=== PATIENT | female | born 1990 | race Caucasian/White ===

== ENCOUNTER 2018-08-11 12:12 | Observation (INO) ==
[2018-08-11] MEDS ORDERED: OXYCODONE Oral CONC 10 MG/0.5 ML ORAL.SYG SL ONE (15:51)
[2018-08-11] MEDS ORDERED: cefOXitin 2,000 MG in Water for inj. (sterile) 20 ML 20 ML IVP SCH (16:00)
[2018-08-11] MEDS ORDERED: 0.9 % Sodium Chloride 1,000 ML IVC SCH ×2 (16:00→22:00)
[2018-08-11] MEDS ORDERED: Ondansetron 4 MG/2 ML VIAL IVP PRN ×2 (16:30→22:27)
--- NOTE | 2018-08-11 16:49 | Acute Care Surgery H&P ---
Date of Encounter: 08/11/18 Time of Encounter: 16:00 Assessment and Plan (1) Acute appendicitis Current Visit: Yes Status: Acute The assessment and plan as outlined above was discussed with the patient and/or family members who expressed understanding and agreement. All questions were answered. Plan urgent laparoscopic appendectomy. Preoperative treatment with second- generation cephalosporin Qualifiers: Acute appendicitis type: with localized peritonitis Appendicitis gangrene presence: unspecified whether gangrene present Appendicitis perforation presence: unspecified whether perforation present Appendicitis abscess presence: unspecified whether abscess present Qualified Code(s): K35.30 - Acute appendicitis with localized peritonitis, without perforation or gangrene History of Present Illness Chief complaint: Right lower quadrant abdominal pain HPI: Ms. Trejo is a 28 year old female Who has a 1 day history of right-sided abdominal pain localized to the right lower quadrant. She has pain with motion. She has no shakes chills or fever. Pain is unrelenting. She is anorexic. She sought evaluation at the [facility] emergency room. CAT scan demonstrated appendicolith and thickened appendix wall. There were also some lymph nodes suggestive of mesenteric adenitis. Physical examination is highly suggestive of acute appendicitis. Plan urgent laparoscopic appendectomy Past Med Surg Social Fam HX - Past Medical History Medical history: no medical history Additional medical history: biliary colic Psychiatric history: anxiety - Past Surgical History Surgical History: non-contributory - Social History Smoking Status: Never smoker Smokeless Tobacco Status: No Alcohol use: none Drug use: none Medications and Allergies Citalopram [CeleXA] 20 mg PO DAILY 01/07/16 [History] Norgestimate-Ethinyl Estradiol [Sprintec 28 Day Tablet] 1 each PO DAILY 01/07/16 [History] Allergy/AdvReac Type Severity Reaction Status Date / Time No Known Allergies Allergy Verified 04/14/17 09:34 Review of Systems All systems PM: The remainder of the systems were reviewed and are negative General Surgery Exam Initial Vital Signs Temp Pulse Resp BP Pulse Ox 98.7 F 87 16 122/80 98 08/11/18 14:37 08/11/18 14:37 08/11/18 14:37 08/11/18 14:37 08/11/18 14:37 - General physical appearance well developed, well nourished, moderate distress, severe pain - Neck no masses, no bruits, trachea midline, no lymphadectomy, no venous distension - Respiratory normal expansion, normal respiratory effort, clear to percussion, clear to auscultation - Cardiovascular Cardiovascular exam: Present: RRR, no murmurs/rubs/gallops - Abdomen Abdomen general surgery: Present: bowel sounds present, tender Abdominal Tenderness: Present: RLQ (The patient has both guarding and rebound) - Neurologic Present: CN 2-12 grossly intact, normal coordination, normal sensation - Psychiatric Psychiatric general surgery: Present: appropriate, oriented to person, oriented to place, oriented to time, speech is normal, memory intact Results - Labs All other labs normal. - Imaging CT scan - abdomen: image reviewed (I personally reviewed the CAT scan and the abdomen. Patient does have appendicoliths and thickened appendix wall. Findings are consistent with appendicitis)
[2018-08-11] MEDS ORDERED: Ondansetron 4 MG/2 ML VIAL IVP SCH (20:00)
--- NOTE | 2018-08-11 20:23 | Anesthesia Evaluation PreOp ---
Date of Encounter: 08/11/18 Time of Encounter: 20:20 - Past History Planned Operation: Lap Appendectomy Cardiac History: Denies any Significant Hx Pulmonary History: Denies Any Significant HX FIELD COORDINATOR History: Denies Any Significant HX Other Medical History: Other (Anxiety Obese) Anesthesia History: No Prior Anesthetic Complications : No Test: Negative Alcohol Use: none Drug use: none Medications and Allergies Citalopram [CeleXA] 20 mg PO DAILY 01/07/16 [History] Norgestimate-Ethinyl Estradiol [Sprintec 28 Day Tablet] 1 each PO DAILY 01/07/16 [History] Allergy/AdvReac Type Severity Reaction Status Date / Time No Known Allergies Allergy Verified 04/14/17 09:34 - Meds/Allergy Pre-op Review Medications Reviewed: Yes Allergies Reviewed: Yes Beta Blockers on Current Med List: No Anesthesia Results - Labs Laboratory Tests 08/11/18 08/11/18 09:20 09:20 Hgb 14.3 Hct 41.2 Plt Count 219 Sodium 136 Potassium 4.0 BUN 10 Creatinine 0.59 L Anesthesia Exam O2 Sat Height 1.7 m Weight 91.1 kg O2 Sat by Pulse Oximetry 97 O2 Sat by Pulse Oximetry 98 Vital Signs Temp Pulse Resp BP Pulse Ox 98.7 F 87 16 122/80 98 08/11/18 14:37 08/11/18 14:37 08/11/18 14:37 08/11/18 14:37 08/11/18 14:37 Height: 5'7 Weight: 200 lbs NPO (# of Hours): MN Pain Scale: 0 - HEENT Pupil (Motor): Pupils equal, EOMI Mallampati: II Teeth: Normal Oral Opening: Greater than 3 - FIELD COORDINATOR LOC: Oriented FIELD COORDINATOR Motor: Normal RUE, Normal LUE, Normal RLE, Normal LLE, Normal Face FIELD COORDINATOR Sensory: Normal: RUE, LUE, RLE, LLE, Face - Cardiac Rhythm: Regular Murmur: None JVD: No Carotid Bruit: No - Pulmonary Breath Sounds: bilateral Clear Respiratory Effort: Symmetrical Anesthesia Assess/Plan ASA Score: 2 Level of consciousness: Cooperative, Oriented Anesthetic Plan: General Autologous Blood: No Monitoring Plan: Standard Monitors Recovery Plan: PACU (Discussed GA, agrees to proceed)
[2018-08-11] MEDS ORDERED: *HR* Morphine 2 MG/ML SYRINGE IVP PRN (20:25)
[2018-08-11] MEDS ORDERED: Ondansetron 4 MG/2 ML VIAL IVP ONE (20:25)
[2018-08-11] MEDS ORDERED: *HR* FentaNYL (PF) 100 MCG/2 ML VIAL ONE (20:30)
[2018-08-11] MEDS ORDERED: *HR* Propofol 200 MG/20 ML VIAL IVP ONE (20:30)
[2018-08-11] MEDS ORDERED: Dexamethasone 4 MG/ML VIAL ONE (20:31)
[2018-08-11] MEDS ORDERED: Lidocaine -MPF 2% 2 ML VIAL ONE ×2 (20:31→21:01)
[2018-08-11] MEDS ORDERED: *HR* Rocuronium Bromide 50 MG/5 ML VIAL ONE (20:31)
[2018-08-11] MEDS ORDERED: Famotidine 20 MG/2 ML VIAL ONE (20:33)
[2018-08-11] MEDS ORDERED: Acetaminophen IV 1,000 MG/100 ML INFUS..BTL ONE (20:33)
[2018-08-11] MEDS ORDERED: CefOXitin 1,000 MG VIAL ONE (20:38)
[2018-08-11] MEDS ORDERED: Ketorolac 30 MG/ML VIAL ONE (21:21)
[2018-08-11] MEDS ORDERED: SUGAMMADEX SODIUM 500 MG/5 ML VIAL IV ONE (21:30)
[2018-08-11] MEDS ORDERED: *HR* OxyCODONE/APAP 5/325 TABLET PO PRN (21:48)
[2018-08-11] MEDS ORDERED: OXYCODONE Oral CONC 10 MG/0.5 ML ORAL.SYG SL PRN ×2 (21:48→22:27)
--- NOTE | 2018-08-11 21:56 | Operative Note ---
Date of procedure: 08/11/18 Pre-op diagnosis: Acute appendicitis Post-op diagnosis: same Procedure: Laparoscopic appendectomy Anesthesia: AMBREEN Surgeon: Geoff Stroud Was there an technical assistant present: No Estimated blood loss (cc): 10 Specimen: Appendix Condition: stable Disposition: PACU Procedure in Detail: After informed consent the patients taking major operative suite placed supine position and given adequate general endotracheal anesthesia. The abdomen is prepped and draped in sterile fashion utilizing ChloraPrep and standard draping techniques. Timeout was taken and the patient was identified. I made a vertical midline incision below the umbilicus and dissected down to level of fascia. 2 traction stitches were placed using 0 Vicryl. The abdomen was entered visually and I placed a Pepper trocar the abdomen was insufflated to 15 mmHg pressure CO2 the 5 mm trochars placed in the left suprapubic area and a 12 trocar was placed in the right upper quadrant there was purulent fluid in the pelvis. This was free pus. I identified the appendix. The appendix was acutel y inflamed and covered in pus. I opened the window between the meso- appendix and the base of the cecum. I divided the base the cecum with a laparoscopic gastrointestinal load on the stapler. I then divided the meso-appendix with 2 vascular loads on the laparoscopic stapler. Tenex was removed in a specimen bag. I replaced the umbilical port and irrigated the pelvis and abdomen with copious amounts of antibiotic containing fluid. all staple lines were intact. There was no evidence of bleeding. All trochars were removed. Fascia was closed with 0 Vicryl and the skin was closed with 2-0 Vicryl and 4-0 Vicryl. She tolerated the procedure well
[2018-08-11] MEDS: 0.9 % Sodium Chloride 1,000 ML IVC SCH (23:46)
[2018-08-11] MEDS: cefOXitin 2,000 MG in Water for inj. (sterile) 20 ML 20 ML IVP SCH (23:59)
[2018-08-12] MEDS ORDERED: cefOXitin 2,000 MG in Water for inj. (sterile) 20 ML 20 ML IVP SCH
[2018-08-12] MEDS: *HR* OxyCODONE/APAP 5/325 TABLET PO PRN ×2 (08:56→21:30)
[2018-08-12] MEDS: cefOXitin 2,000 MG in Water for inj. (sterile) 20 ML 20 ML IVP SCH ×3 (08:57→23:41)
[2018-08-12] MEDS: 0.9 % Sodium Chloride 1,000 ML IVC SCH ×2 (08:57→23:42)
[2018-08-12 10:46] LABS: Basophils % 0.1 %; Hematocrit 36.7 % (35.3-44.9); Hemoglobin 12.3 g/dL (11.5-15.4); Immature Granulocytes % 0.6 % (0-4); Lymphocytes # 0.9 K/mcL (0.6-4.6); Mean Corpuscular HGB Conc 33.5 g/dL (31.6-35.5); Mean Corpuscular Hemoglobin 30.4 pg (28.0-33.3); Mean Corpuscular Volume 90.6 fL (83.0-100.0); Mean Platelet Volume 10.5 fL (9.4-12.4); Monocytes # 0.8 K/mcL (0.0-1.3); Monocytes % 7.5 %; Neutrophils # 9.2 K/mcL (1.6-8.9); Platelet Count 211 K/mcL (140-400); Red Blood Count 4.05 M/mcL (3.82-4.97); Red Cell Distribution Width 12.4 % (11.5-14.5); Segmented Neutrophils % 83.8 %
[2018-08-12 11:05] LABS: BUN/Creatinine Ratio 10 (6-26); Blood Urea Nitrogen 5 mg/dL (6-20); Calcium 8.4 mg/dL (8.6-10.3); Carbon Dioxide 24 mEq/L (23-29); Chloride 110 mEq/L (98-107); Glucose 131 mg/dL (70-105); Osmolality,Calculated 281 (280-300); Potassium 3.4 mEq/L (3.5-5.1); Sodium 136 mEq/L (136-145); eGFR For African Americans > 60 (> 60); eGFR For Non-African Americans > 60 (> 60)
[2018-08-12] MEDS ORDERED: Potassium Chloride 40 MEQ, Lidocaine 1% 2 ML in D5% in Water 500 ML IVPB ONE (11:10)
--- NOTE | 2018-08-12 11:12 | AcuteCareSurgery Progress Note ---
<Kade Rosenthal - Last Filed: 08/12/18 16:13> Date of Encounter: 08/12/18 Objective Vital Signs - Last 8 Hours Temp Pulse Resp BP Pulse Ox 08/12/18 15:02 98.1 F 92 15 108/71 98 08/12/18 11:34 98.2 F 96 15 112/74 96 08/12/18 08:52 96 Intake and Output 08/12/18 08/12/18 08/12/18 07:59 15:59 23:59 Intake Total 1020 / 1760 740 / 1760 Balance 1020 / 1760 740 / 1760 Intake: IV Fluids 1020 / 1040 20 / 1040 0.9 % Sodium Chloride 1,000 ML 1000 / 1000 @ 75 mls/hr IVC .[id number] [facility] Rx #:[id number] Mefoxin 2,000 MG In Water for 20 / 40 inj. (sterile) 20 ML @ 300 mls/ hr IVP Q8HR [facility] Rx#:[id number] Oral 720 / 720 Other: Meal Lunch Percent of Meal Consumed 50% # Voids 1 Weight 91.3 kg Patient Weight 08/12/18 23:59 Weight 91.3 kg - Labs 08/12/18 10:27 08/12/18 10:27 Diabetes panel 08/12/18 Range/Units 10:27 Sodium 136 (136-145) mEq/L Potassium 3.4 L (3.5-5.1) mEq/L Chloride 110 H (98-107) mEq/L Carbon Dioxide 24 (23-29) mEq/L BUN 5 L (6-20) mg/dL Creatinine 0.48 L (0.60-1.20) mg/dL Glucose 131 H (70-105) mg/dL Calcium 8.4 L (8.6-10.3) mg/dL Calcium panel 08/12/18 Range/Units 10:27 Calcium 8.4 L (8.6-10.3) mg/dL Pituitary panel 08/12/18 Range/Units 10:27 Sodium 136 (136-145) mEq/L Potassium 3.4 L (3.5-5.1) mEq/L Chloride 110 H (98-107) mEq/L Carbon Dioxide 24 (23-29) mEq/L BUN 5 L (6-20) mg/dL Creatinine 0.48 L (0.60-1.20) mg/dL Glucose 131 H (70-105) mg/dL Calcium 8.4 L (8.6-10.3) mg/dL Adrenal panel 08/12/18 Range/Units 10:27 Sodium 136 (136-145) mEq/L Potassium 3.4 L (3.5-5.1) mEq/L Chloride 110 H (98-107) mEq/L Carbon Dioxide 24 (23-29) mEq/L BUN 5 L (6-20) mg/dL Creatinine 0.48 L (0.60-1.20) mg/dL Glucose 131 H (70-105) mg/dL Calcium 8.4 L (8.6-10.3) mg/dL Consult Discharge Plan - Plan Referrals: NONE,PCP [Primary Care Provider] - - Attending Attestation I examined this patient and my medical decision-making was reviewed with the Resident Physician. I agree with the documented findings, disposition and treatment plan as described except to the extent set forth below. I personally reviewed the assessment and evaluation mentioned above with the resident and agree with the above plan. Will check CBC today to make sure that her white count is normalizing. Continue IV antibiotics at least for another 24 hours. Continue to monitor temperature. Will advance to full liquids. Encourage out of bed and ambulation. <Thania Salmon - Last Filed: 08/12/18 17:56> Date of Encounter: 08/12/18 Time of Encounter: 11:08 - Assessment and Plan (1) Acute appendicitis Current Visit: Yes Status: Acute Presented with right lower quadrant abdominal pain CT scan showed appendicolith and thickened appendix wall Status post laparoscopic appendectomy day 1 No leukocytosis, T max overnight 100.3 Antibiotic coverage day 2 -Mefoxin Nausea-Zofran Pain control-oxycodone Advance to full liquid diet Continue to ambulate Incentive spirometry Continue to follow labs and electrolytes Qualifiers: Acute appendicitis type: with localized peritonitis Appendicitis gangrene presence: without gangrene Appendicitis perforation presence: without perforation Appendicitis abscess presence: without abscess Qualified Cod e(s): K35.30 - Acute appendicitis with localized peritonitis, without perforation or gangrene (2) Hypokalemia Current Visit: Yes Status: Acute Patient has some mild hypokalemia today Potassium 3.4 Will replete (3) Depression Current Visit: Yes Status: Acute History of depression Continue home medication celexa Qualifiers: Depression Type: major depressive disorder Major depression recurrence: unspecified whether recurrent Active/Remission status: remission status unspecified Qualified Code(s): F32.9 - Major depressive disorder, single episode, unspecified (4) DVT prophylaxis Current Visit: Yes Status: Acute Subcutaneous heparin Subjective Narrative: Patient seen and examined at bedside today. She is status post laparoscopic appendectomy day 1. She states that she is doing well and pain is moderately controlled. She admits to some intermittent nausea as well as abdominal pain around laparoscopic incision sites and right upper quadrant. She denies vomiting, fever, chills, should chest pain, shortness of breath, dysuria, hematuria, calf pain. She is not yet passed flatus. She is tolerating clear liquid diet, she will be advanced to full liquid diet today. Objective Vital Signs - Last 8 Hours Temp Pulse Resp BP Pulse Ox 08/12/18 08:52 96 08/12/18 07:45 98.0 F 81 15 99/64 96 08/12/18 03:41 99.0 F 95 16 108/73 95 Intake and Output 08/11/18 08/12/18 08/12/18 23:59 07:59 15:59 Intake Total 1020 / 1040 20 / 1040 Output Total Balance -10 / -10 1020 / 1040 20 / 1040 Intake: IV Fluids 1020 / 1040 20 / 1040 0.9 % Sodium Chloride 1,000 ML 1000 / 1000 @ 75 mls/hr IVC .[id number] [facility] Rx #:[id number] Mefoxin 2,000 MG In Water for inj. (sterile) 20 ML @ 300 mls/ hr IVP Q8HR [facility] Rx#:[id number] Output: Estimated Blood Loss Other: # Voids 1 Weight 91.3 kg Patient Weight 08/12/18 23:59 Weight 91.3 kg - General physical appearance well developed, well nourished, no distress - Eyes PERRL, normal ocular movement - ENT normal nares, normal mucosa, no hearing loss - Neck Neck exam: trachea midline, no venous distension - Respiratory normal expansion, normal respiratory effort, clear to percussion, clear to auscultation - Cardiovascular Cardiovascular exam: Present: RRR, no murmurs/rubs/gallops. Absent: JVD - Abdomen Abdomen: Present: bowel sounds present (Hypoactive), soft, tender (Tenderness to palpation around laparoscopic incisions, also right upper quadrant) - Incision Incision: Present: clean and dry, intact. Absent: draining, red, swollen - Integumentary no rash, no growths, no abnormal pigmentation - Neurologic normal coordination, normal sensation - Musculoskeletal normal gait, normal posture - Psychiatric oriented to time, oriented to person, oriented to place, speech is normal, memory intact - Labs 08/12/18 10:27 08/12/18 10:27 Diabetes panel 08/12/18 Range/Units 10:27 Sodium 136 (136-145) mEq/L Potassium 3.4 L (3.5-5.1) mEq/L Chloride 110 H (98-107) mEq/L Carbon Dioxide 24 (23-29) mEq/L BUN 5 L (6-20) mg/dL Creatinine 0.48 L (0.60-1.20) mg/dL Glucose 131 H (70-105) mg/dL Calcium 8.4 L (8.6-10.3) mg/dL Calcium panel 08/12/18 Range/Units 10:27 Calcium 8.4 L (8.6-10.3) mg/dL Pituitary panel 08/12/18 Range/Units 10:27 Sodium 136 (136-145) mEq/L Potassium 3.4 L (3.5-5.1) mEq/L Chloride 110 H (98-107) mEq/L Carbon Dioxide 24 (23-29) mEq/L BUN 5 L (6-20) mg/dL Creatinine 0.48 L (0.60-1.20) mg/dL Glucose 131 H (70-105) mg/dL Calcium 8.4 L (8.6-10.3) mg/dL Adrenal panel 08/12/18 Range/Units 10:27 Sodium 136 (136-145) mEq/L Potassium 3.4 L (3.5-5.1) mEq/L Chloride 110 H (98-107) mEq/L Carbon Dioxide 24 (23-29) mEq/L BUN 5 L (6-20) mg/dL Creatinine 0.48 L (0.60-1.20) mg/dL Glucose 131 H (70-105) mg/dL Calcium 8.4 L (8.6-10.3) mg/dL
[2018-08-12] MEDS: *HR* Heparin 5,000 UNIT/ML VIAL SQ SCH ×2 (12:50→17:30)
[2018-08-12] MEDS ORDERED: Acetaminophen 325 MG TABLET PO ONE (13:26)
[2018-08-13 05:15] LABS: Basophils % 0.1 %; Eosinophils # 0.1 K/mcL (0.0-0.6); Eosinophils % 0.7 %; Immature Granulocytes % 0.2 % (0-4); Lymphocytes # 2.1 K/mcL (0.6-4.6); Lymphocytes % 23.9 %; Mean Corpuscular HGB Conc 32.4 g/dL (31.6-35.5); Mean Corpuscular Hemoglobin 29.9 pg (28.0-33.3); Mean Corpuscular Volume 92.4 fL (83.0-100.0); Mean Platelet Volume 10.5 fL (9.4-12.4); Monocytes # 0.7 K/mcL (0.0-1.3); Monocytes % 8.2 %; Neutrophils # 5.9 K/mcL (1.6-8.9); Platelet Count 202 K/mcL (140-400); Red Blood Count 3.68 M/mcL (3.82-4.97); Red Cell Distribution Width 12.8 % (11.5-14.5); Segmented Neutrophils % 66.9 %; White Blood Count 8.8 K/mcL (4.3-11.1)
[2018-08-13 05:36] LABS: BUN/Creatinine Ratio 14 (6-26); Blood Urea Nitrogen 7 mg/dL (6-20); Carbon Dioxide 24 mEq/L (23-29); Chloride 110 mEq/L (98-107); Glucose 96 mg/dL (70-105); Osmolality,Calculated 286 (280-300); Phosphorous 1.7 mg/dL (2.7-4.5); Potassium 3.6 mEq/L (3.5-5.1); Sodium 139 mEq/L (136-145); eGFR For African Americans > 60 (> 60); eGFR For Non-African Americans > 60 (> 60)
[2018-08-13] MEDS: *HR* Heparin 5,000 UNIT/ML VIAL SQ SCH (05:51)
[2018-08-13] MEDS: cefOXitin 2,000 MG in Water for inj. (sterile) 20 ML 20 ML IVP SCH (08:00)
--- NOTE | 2018-08-13 10:27 | Discharge Summary ---
<Thania Salmon - Last Filed: 08/14/18 11:35> - NOTES TO OUTPATIENT PROVIDER Notes to Outpatient Provider: Patient to follow-up outpatient with surgery in 2 weeks. New medications include Augmentin for 5 days, Percocet for 5 days. Orders not resulted at time of discharge: Pending orders 08/11/18 21:43 Surgical Pathology [PTH] Routine 08/14/18 04:00 BMP [Basic Metabolic Panel] AM 0400 CBC [Complete Blood Count] [HEME] AM 0400 Magnesium AM 0400 Phosphorous AM 0400 08/15/18 04:00 BMP [Basic Metabolic Panel] AM 0400 CBC [Complete Blood Count] [HEME] AM 0400 Magnesium AM 0400 Phosphorous AM 0400 Date of Encounter: 08/14/18 Time of Encounter: 10:26 - Discharge Diagnosis (1) Acute appendicitis Priority: Primary Status: Resolved Qualifiers: Acute appendicitis type: with localized peritonitis Appendicitis gangrene presence: without gangrene Appendicitis perforation presence: without perforation Appendicitis abscess presence: without abscess Qualified Code(s): K35.30 - Acute appendicitis with localized peritonitis, without perforation or gangrene (2) Hypokalemia Priority: Secondary Status: Resolved (3) Depression Priority: Secondary Status: Chronic Qualifiers: Depression Type: major depressive disorder Major depression recurrence: unspecified whether recurrent Active/Remission status: remission status unspecified Qualified Code(s): F32.9 - Major depressive disorder, single episode, unspecified (4) DVT prophylaxis Priority: Secondary Status: Resolved General Surgery Exam Initial Vital Signs Temp Pulse Resp BP Pulse Ox 98.7 F 87 16 122/80 98 08/11/18 14:37 08/11/18 14:37 08/11/18 14:37 08/11/18 14:37 08/11/18 14:37 - General physical appearance well developed, well nourished, no distress - Eyes PERRL, normal ocular movement - ENT normal pinna, normal nares, normal mucosa, no hearing loss, no congestion - Neck no masses, trachea midline, no venous distension - Respiratory normal expansion, normal respiratory effort, clear to percussion, clear to auscultation - Cardiovascular Cardiovascular exam: Present: RRR, no murmurs/rubs/gallops. Absent: JVD - Abdomen Abdomen general surgery: Present: bowel sounds present, soft, tender (Appropriately tender to palpation around incisions.) Abdominal Tenderness: Present: RLQ - Incision Incision: Present: clean and dry, intact. Absent: draining, red, swollen - Integumentary Integumentary general surgery: Present: warm and dry, no abnormal pigmentation - Neurologic Present: CN 2-12 grossly intact, normal coordination, normal sensation - Musculoskeletal Present: normal gait, normal posture - Psychiatric Psychiatric general surgery: Present: appropriate, oriented to person, oriented to place, oriented to time, speech is normal, memory intact - Hospital Course Hospital course: Ms. Trejo is a 28 year old female who presented with a one-day history of right- sided abdominal pain to the right lower quadrant. She has no significant medical history. She had presented to [place] emergency room. CT scan had demonstrated an appendicolith and thickened appendix wall as well as lymph nodes suggestive of mesenteric adenitis. Patient was transferred to [facility]. She underwent urgent laparoscopic appendectomy. She was treated over admission with Mefoxin for antibiotic coverage. Pain was controlled with oxycodone and Zofran for nausea. She was found to have some hypokalemia on labs and potassium chloride was used to replete. She was afebrile over course of admission, no leukocytosis. Patient was able to do incentive spirometry, advance ambulation and she was able to tolerate advancing of her diet to regular diet. She is able to pass flatus, pain is controlled. Vital signs and labs are stable and patient is well to discharge to home with follow-up with surgery in 2 weeks. She will be discharged with 5 days of Augmentin as well as 5 days of Percocet for pain control. - Time Spent with Patient Total time spent providing and/or coordinating discharge services: - Discharge Medications Prescriptions: New OxyCODONE/APAP 5/325 [Percocet 5/325 MG] 1 each PO Q6HR PRN 5 Days #20 tablet PRN Reason: Pain (5-10) Amoxicillin/Clavulanate [Augmentin] 875 mg PO BIDWM 5 Days #10 tablet Continued Norgestimate-Ethinyl Estradiol [Sprintec 28 Day Tablet] 1 each PO DAILY Citalopram [CeleXA] 40 mg PO DAILY Home Medications: Citalopram [CeleXA] 40 mg PO DAILY 01/07/16 [History] Norgestimate-Ethinyl Estradiol [Sprintec 28 Day Tablet] 1 each PO DAILY 01/07/16 [History] Amoxicillin/Clavulanate [Augmentin] 875 mg PO BIDWM 5 Days #10 tablet 08/13/18 [Rx] OxyCODONE/APAP 5/325 [Percocet 5/325 MG] 1 each PO Q6HR PRN 5 Days #20 tablet 08/13/18 [Rx] Allergies/Adverse Reactions: Allergy/AdvReac Type Severity Reaction Status Date / Time No Known Allergies Allergy Verified 08/12/18 18:50 Date of admission: 08/11/18 13:49 Primary care physician: PCP NONE Discharging clinician: Thania Salmon Anticipated date of discharge: 08/13/18 Labs on day of discharge: Labs from last 24 hours 08/13/18 08/13/18 08/12/18 04:54 04:54 10:27 WBC 8.8 RBC 3.68 L Hgb 11.0 L Hct 34.0 L MCV 92.4 MCH 29.9 MCHC 32.4 RDW 12.8 Plt Count 202 MPV 10.5 Immature Gran % 0.2 Seg Neutrophils % 66.9 Lymphocytes % 23.9 Monocytes % 8.2 Eosinophils % 0.7 Basophils % 0.1 Neutrophils # 5.9 Lymphocytes # 2.1 Monocytes # 0.7 Eosinophils # 0.1 Basophils # 0.0 Sodium 139 136 Potassium 3.6 3.4 L Chloride 110 H 110 H Carbon Dioxide 24 24 BUN 7 5 L Creatinine 0.51 L 0.48 L Est GFR ( Amer) > 60 > 60 Est GFR (Non-Af Amer) > 60 > 60 BUN/Creatinine Ratio 14 10 Glucose 96 131 H Calculated Osmolality 286 281 Calcium 8.0 L 8.4 L Phosphorus 1.7 L Magnesium 2.0 08/12/18 10:27 WBC 11.0 RBC 4.05 Hgb 12.3 D Hct 36.7 MCV 90.6 MCH 30.4 MCHC 33.5 RDW 12.4 Plt Count 211 MPV 10.5 Immature Gran % 0.6 Seg Neutrophils % 83.8 Lymphocytes % 8.0 Monocytes % 7.5 Eosinophils % 0.0 Basophils % 0.1 Neutrophils # 9.2 H Lymphocytes # 0.9 Monocytes # 0.8 Eosinophils # 0.0 Basophils # 0.0 Sodium Potassium Chloride Carbon Dioxide BUN Creatinine Est GFR ( Amer) Est GFR (Non-Af Amer) BUN/Creatinine Ratio Glucose Calculated Osmolality Calcium Phosphorus Magnesium - Patient Status Disposition: Home, Self-Care Condition: Good Functional capacity at discharge: independent ambulation Overall status at discharge: patient is progressing back to baseline - Discharge Instructions Instructions: Laparoscopic Appendectomy (DC) Follow Up With: Geoff Stroud MD [Partnered Physician] - (Appt has been requested. ) Marianna Flower CNP [Advanced Practice Nurse] - (Unable to make appointment due to office being closed. Please call Wednesday to schedule hospital follow up appointment for 7-10 days from date of discharge. ) Additional Instructions: 1. No pushing, pulling, or lifting greater than 15 lbs for 2-4 weeks (depending upon procedure). 2. You may shower beginning today, but no tub baths, soaking, or swimming for 2 weeks. 3. You may resume driving when you are off narcotics and are safe to react in a car. 4. Take ibuprofen every 8 hours for discomfort. If this does not relieve discomfort, you may take the as needed Percocet. Take narcotics as directed. Do not take more narcotics then directed and do not share your narcotics with an y other person. Do not drink alcohol while on narcotics. 5. Take stool softeners (Colace) or a water based laxative (Miralax) while taking narcotics. You may hold for loose stools. 6. Report any fevers greater than 100.5F, increase abdominal discomfort, drainage that looks like pus, increased redness or pain at the surgical site, or any vomiting. 7. Report any pain in the calves, shortness of breath, or rapid heartbeat. 8. Follow-up in the office as directed. 9. If you were prescribed antibiotics, do not stop them without talking to your provider. Please note that surgery will call you to schedule an appointment for follow up. The follow up appointment will take place in 2 weeks from discharge. - Diet and Activity Activity: increase activity as tolerated Diet: advance to your usual diet <Kade Rosenthal - Last Filed: 08/15/18 05:28> Orders not resulted at time of discharge: Pending orders 08/11/18 21:43 Surgical Pathology [PTH] Routine Date of Encounter: 08/13/18 General Surgery Exam Initial Vital Signs Temp Pulse Resp BP Pulse Ox 98.7 F 87 16 122/80 98 08/11/18 14:37 08/11/18 14:37 08/11/18 14:37 08/11/18 14:37 08/11/18 14:37 - Hospital Course Hospital course: Ms. Trejo is a 28 year old female - Time Spent with Patient Total time spent providing and/or coordinating discharge services: Date of admission: 08/11/18 13:49 Primary care physician: PCP NONE - Attending Attestation I examined this patient and my medical decision-making was reviewed with the Resident Physician. I agree with the documented findings, disposition and treatment plan as described except to the extent set forth below. I reviewed the above assessment and evaluation with the resident and agree with the above plan.
[2018-08-13 11:02] VITALS: BP 107/71
[2018-08-13] MEDS ORDERED: Ibuprofen 600 MG TABLET PO ONE (12:28)
== END 2018-08-13 13:30 | disposition home or self-care (01) ==
LOC: 3BNU
PROVIDERS: ADMIT Surgery; ATTEND Surgery